=== PATIENT | male | born 2000 | race Caucasian/White ===

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

== ENCOUNTER 2024-01-03 13:34 | Emergency (ER) | payer BC, SELFPAY ==
[2024-01-03 14:00] VITALS: BP 127/72; PULSE 78; RESP 18; TEMP 37.2; O2SAT 97; BMI 22.8
--- NOTE | 2024-01-03 14:24 | ED_ITS ---
Discharge Plan Disposition Patient Disposition: Home, Self-Care Condition: Good Prescriptions Prescriptions: New qjafpmecjwefjdq-fpmcyebss-QW [Bromfed DM] 2-30-10 mg/5 mL syrup 10 ml PO QID PRN (Reason: cold symptoms) Qty: 118 0RF No Action bupropion HCl [Wellbutrin XL] 300 mg tablet extended release 24 hr 300 mg PO DAILY Qty: 90 2RF fluticasone propionate [Flonase Allergy Relief] 50 mcg/actuation spray,suspension 1 spray intranasal DAILY Qty: 16 2RF Rx Instructions: administer into each nostril Referrals Follow up/Referrals: Teo Curry MD [Primary Care Provider] - See instructions Activity Restrictions/Add. Instructions Additional Instructions/Restrictions: No sign of a bacterial infection. Likely viral. Viruses can take 7-14 days to run their course. Nasal saline and bulb syringe or nose Tanya to remove nasal drainage to help with nasal congestion. Hard to eat, drink, sleep with nasal congestion so important to keep this cleaned out. Monitor temp. Tylenol or Motrin as needed for pain or fever Encourage fluids, water, Gatorade, Powerade, Pedialyte if infant/toddler/child Warm salt water gargles Warm fluids Sore throat lozenges Sleep elevated Humidifier/vaporizer Follow-up immediately for new or worsening symptoms or no noticeable improvement over the next 48-72 hours. Clinical Impressions Clinical Impression: Influenza Instructions Patient Instructions: DI for Influenza -- Adult Discharge ED Provider: Pete ([facility])Luis Alberto [facility] [place] HPI General Stated complaint: dizzy, acid reflux, cough, nausea Mode of Arrival: Ambulatory Source of Information: Patient Limitations: No Limitations Time Seen by Provider: 01/03/24 14:24 Description of Symptoms (Recalled from Triage Doc. by RN): Pt's symptoms are cough, dizzy, chest ocampo when breathing (denies cardiac), abdominal pain around his umbilicus, and fatigue. pt states symptoms for over a week HEENT Symptoms (Recalled from RN notes): Yes Resp Symptoms (Recalled from RN notes): No Skin Symptoms (Recalled from RN notes): No MS Symptoms (Recalled from RN notes): No Functional Status (Recalled from RN notes): n/a History of Present Illness Provider Complaint: 23 yr old male presents for c/o cough, dizzy, chest ocampo when breathing, abdominal pain around his umbilicus, and fatigue. Related Data Previous Rx's Medication Instructions Recorded bupropion HCl 300 mg 24 hr tablet, 300 mg PO DAILY #90 tabs 08/12/23 extended release (Wellbutrin XL) fluticasone propionate 50 1 spray intranasal DAILY #16 grams 12/22/23 mcg/actuation nasal spray,suspension (Flonase Allergy Relief) gdwmyspexwfazdk-zelwdvxlvnnidvf-AM 10 ml PO QID PRN cold symptoms 01/03/24 2 mg-30 mg-10 mg/5 mL oral syrup #118 mL (Bromfed DM) Allergies Allergy/AdvReac Type Severity Reaction Status Date / Time Sulfa (Sulfonamide Allergy Mild Verified 01/03/24 14:21 Antibiotics) Worker's Comp Is this a Worker's Comp case?: No [facility] Disclaimer: The information contained in this section may have been updated after the patient was seen, as this information can be updated by other users. 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) Smoking Status: Current every day smoker tobacco type: cigarettes packs per day: 1 alcohol intake: never substance use type: denies use current occupational status: unemployed Travel in the last 8 weeks: None household members: family housing: house ROS Obtained: Yes All systems reviewed & no additional complaints except as documented Constitutional Constitutional: Reports system reviewed and no additional complaints, except as documented, Reports as per HPI and Reports fever(s) Eyes Eyes: Reports system reviewed and no additional complaints, except as documented ENT Ears, Nose, Mouth, and Throat: Reports system reviewed and no additional complaints, except as documented, Reports as per HPI, Reports nasal congestion, Reports nasal discharge, Reports sinus pain, Reports sinus pressure and Reports sore throat Cardiovascular Cardiovascular: Reports system reviewed and no additional complaints, except as documented Respiratory Respiratory: Reports system reviewed and no additional complaints, except as documented, Reports as per HPI, Reports chest congestion and Reports cough Musculoskeletal Musculoskeletal: Reports system reviewed and no additional complaints, except as documented Integumentary/Breasts Skin/Breast: Reports system reviewed and no additional complaints, except as documented Neurologic Neurologic: Reports system reviewed and no additional complaints, except as documented Hematologic/Lymphatic Henatologic/Lymphatic: Reports system reviewed and no additional complaints, except as documented Allergic/Immunologic Allergic/Immunologic: Reports system reviewed and no additional complaints, except as documented Physical Exam General General appearance: alert and in no apparent distress Head Head exam: atraumatic Eye Eye exam: Present normal appearance and PERRL ENT ENT exam: Present normal exam, normal oropharynx, mucous membranes moist and TM's normal bilaterally Respiratory Respiratory exam: Present normal lung sounds bilaterally Cardiovascular Cardiovascular exam: Present regular rate and normal rhythm Neurological Exam Neurological exam: Present alert and oriented X3 Medical Decision Making Medical Records Medical records reviewed: Yes I reviewed the patient's medical records. Keaton Inquiry Pt receiving controlled substance: No Keaton was queried for this patient: No Vital Signs: 01/03/24 14:00 Temperature 98.9 F Temperature Source Oral Pulse Rate [Right Radial] 78 Respiratory Rate 18 Blood Pressure [Right Arm] 127/72 Blood Pressure Mean [Right Arm] 90 Blood Pressure Source [Right Arm] Automatic Cuff Blood Pressure Position [Right Arm] Sitting 02 Sat by Pulse Oximetry 97 Oxygen Delivery Method Room Air Lab Data Lab results reviewed: Yes I reviewed the patient's lab results.
[2024-01-03 14:50] LABS: UTC Strep Screen (Rapid) Negative (Negative)
[2024-01-03 14:51] LABS: UTC Influenza A Antigen Negative (Negative); UTC Influenza B Antigen Positive (Negative)
[2024-01-03 14:53] LABS: Apearance,Urine Clear (Clear); Color,Urine Yellow (Yellow)
[2024-01-03 14:54] LABS: Bilirubin,Urine Negative (Negative); Blood, Urine Negative (Negative); Glucose,Urine (UA) Negative (Negative); Ketones,Urine Negative (Negative); Protein,Urine Negative (Negative); UTC Leukocyte Esterase,Urine Negative (Negative); UTC Nitrate,Urine Negative (Negative); Urobilinogen,Urine 0.2 EU/dl (0.2)
[2024-01-03 15:08] VITALS: BP 127/72; PULSE 78; RESP 18; TEMP 37.2; O2SAT 97
== END 2024-01-03 15:08 | disposition home or self-care (01) ==
PROVIDERS: Emergency Provider Nurse Practitioner Family; PCP Family Medicine
DX: J10.1 Influenza due to other identified influenza virus with other respiratory manifestations (principal); R07.1 Chest pain on breathing; R05.9 Cough, unspecified; R10.33 Periumbilical pain; R42 Dizziness and giddiness; R53.83 Other fatigue; F17.210 Nicotine dependence, cigarettes, uncomplicated
CPT/HCPCS: 81003; 87804; 87880; 99204; 99212; G0463

== ENCOUNTER 2024-05-24 13:48 | Emergency (ER) | payer BC, SELFPAY ==
[2024-05-24 14:00] VITALS: BP 163/88; PULSE 84; RESP 18; TEMP 36.8; O2SAT 98; BMI 23.6
--- NOTE | 2024-05-24 14:49 | ED_ITS ---
Discharge Plan Disposition Patient Disposition: Home, Self-Care Condition: Good Prescriptions Prescriptions: New amoxicillin 500 mg capsule 500 mg PO TID 7 Days Qty: 21 0RF fluticasone propionate [Flonase Allergy Relief] 50 mcg/actuation spray,suspension 1 spray intranasal DAILY Qty: 16 0RF Rx Instructions: administer into each nostril No Action bupropion HCl 300 mg tablet extended release 24 hr 300 mg PO DAILY Referrals Follow up/Referrals: Teo Curry MD [Primary Care Provider] - See instructions Activity Restrictions/Add. Instructions Additional Instructions/Restrictions: Take medication as prescribed Follow up with your Family Doctor if no improvement or any worsening of symptoms Return if needed Gargle warm salt water for sore scratchy throat Clinical Impressions Clinical Impression: Otitis media Qualifiers: Otitis media type: unspecified Laterality: left Qualified Code(s): H66.92 - Radha tis media, unspecified, left ear Instructions Patient Instructions: Middle Ear Infection Print Language Print Language: Danish Discharge ED Provider: Breana Martel [facility] [place] HPI General Stated complaint: pain in ears, sore throat, cough w/mucus/blood Mode of Arrival: Ambulatory Source of Information: Patient Limitations: No Limitations Time Seen by Provider: 05/24/24 14:49 Description of Symptoms (Recalled from Triage Doc. by RN): PATIENT C/O POSSIBLE EAR INFECTION X 2 DAYS HEENT Symptoms (Recalled from RN notes): Yes Resp Symptoms (Recalled from RN notes): No Skin Symptoms (Recalled from RN notes): No MS Symptoms (Recalled from RN notes): No Functional Status (Recalled from RN notes): WNL History of Present Illness Provider Complaint: Patient states that he has been having pain in both ears for several days worse today and his throat was feeling scratchy and hurting Related Data Home Medications ?Medication ?Instructions ?Recorded ?Confirmed bupropion HCl 300 mg 24 hr tablet, 300 mg PO DAILY 05/24/24 05/24/24 extended release Previous Rx's ?Medication ?Instructions ?Recorded amoxicillin 500 mg capsule 500 mg PO TID 7 days #21 caps 05/24/24 fluticasone propionate 50 1 spray intranasal DAILY #16 grams 05/24/24 mcg/actuation nasal spray,suspension (Flonase Allergy Relief) Allergies Allergy/AdvReac Type Severity Reaction Status Date / Time Sulfa (Sulfonamide Allergy Mild Verified 01/03/24 14:21 Antibiotics) Worker's Comp Is this a Worker's Comp case?: No [facility] Disclaimer: The information contained in this section may have been updated after the patient was seen, as this information can be updated by other users. 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 (Reviewed 01/03/24 @ 14:55 by Luis Alberto Freeman ([facility]), PRODUCTION SUPPLY EQUIPMENT TENDER) Hyperlipidemia Vitamin D deficiency Flat feet, bilateral Insomnia Depression Anxiety Surgical History (Reviewed 01/03/24 @ 14:55 by Luis Alberto Freeman ([facility]), PRODUCTION SUPPLY EQUIPMENT TENDER) No history of previous surgery Family History (Reviewed 01/03/24 @ 14:55 by Luis Alberto Freeman ([facility]), PRODUCTION SUPPLY EQUIPMENT TENDER) Cancer Grandfather Hypertension Father Grandfather Social History (Reviewed 01/03/24 @ 14:55 by Luis Alberto Freeman ([facility]), PRODUCTION SUPPLY EQUIPMENT TENDER) Smoking Status: Current every day smoker tobacco type: cigarettes packs per day: 1 alcohol intake: never substance use type: denies use current occupational status: unemployed Travel in the last 8 weeks: None household members: family housing: house ROS Obtained: Yes All systems reviewed & no additional complaints except as documented and Yes Systems reviewed as appropriate & no additional complaints except as documented Constitutional Constitutional: Reports system reviewed and no additional complaints, except as documented, Reports as per HPI, Denies body ache, Denies chills and Denies fever(s) ENT Ears, Nose, Mouth, and Throat: Reports system reviewed and no additional complaints, except as documented, Reports as per HPI, Reports otalgia and Reports sore throat Cardiovascular Cardiovascular: Reports system reviewed and no additional complaints, except as documented and Reports as per HPI Respiratory Respiratory: Reports system reviewed and no additional complaints, except as documented and Reports as per HPI Gastrointestinal Gastrointestingal: Reports system reviewed and no additional complaints, except as documented and as per HPI Physical Exam General General appearance: alert and in no apparent distress ENT ENT exam: Present mucous membranes moist Expanded ENT Exam TM/Canal exam: Bilateral TM: erythema (worse on left) and bulging Throat exam: Present tonsillar erythema (tonsil stone noted on left) Respiratory Respiratory exam: Present normal lung sounds bilaterally; Absent respiratory distress or wheezes Cardiovascular Cardiovascular exam: Present regular rate, normal rhythm and normal heart sounds Neurological Exam Neurological exam: Present alert, oriented X3 and normal gait Medical Decision Making Keaton Inquiry Pt receiving controlled substance: No Keaton was queried for this patient: No Vital Signs: 05/24/24 14:00 Temperature 98.3 F Temperature Source Oral Pulse Rate [Left Brachial] 84 Respiratory Rate 18 Blood Pressure [Left Arm] 163/88 H Blood Pressure Mean [Left Arm] 113 Blood Pressure Source [Left Arm] Automatic Cuff Blood Pressure Position [Left Arm] Sitting 02 Sat by Pulse Oximetry 98 Oxygen Delivery Method Room Air Lab Data Lab results reviewed: Yes I reviewed the patient's lab results.
[2024-05-24 15:16] LABS: UTC Strep Screen (Rapid) Negative (Negative)
[2024-05-24 15:21] VITALS: BP 163/88; PULSE 84; RESP 18; TEMP 36.8; O2SAT 98
== END 2024-05-24 15:24 | disposition home or self-care (01) ==
PROVIDERS: Emergency Provider Nurse Practitioner; PCP Family Medicine
DX: H66.92 Otitis media, unspecified, left ear (principal); H92.03 Otalgia, bilateral; R07.0 Pain in throat; J35.8 Other chronic diseases of tonsils and adenoids
CPT/HCPCS: 87880; 99212; 99214; G0463